=== PATIENT | male | born 1965 | race Two or more races ===

== ENCOUNTER 2016-09-13 12:53 | Emergency (ER) | payer MEDICAID, OTHER ==
[~2016-09-13] VITALS: Wt 80.0 kg
[~2016-09-13 12:53] MED LIST: NAPROSYN
[2016-09-13] MEDS ORDERED: FLUT16SP17 NASAL (14:35)
[2016-09-13] MEDS ORDERED: AZIT250T94 PO (14:35)
[2016-09-13] MEDS ORDERED: ALBU18HF INHALATION (14:35)
[2016-09-13] MEDS ORDERED: INHA-3 MC (14:40)
--- NOTE | 2016-09-13 14:52 | ERD ---
ER Documentation Chief Complaint Date/Time DATE: 09/13/16 TIME: 14:48 Chief Complaint cough and fever for the past few days. ran out of albuterol . mild distress HPI Patient is a 50-year-old male with asthma who presents to the ED with cough, fever and sore throat x 2 days. States that he has had tactile fevers at home 2 days ago no fevers yesterday or today. Denies chest pain, shortness of breath or difficulty breathing. Denies leg pain or swelling, recent surgeries or recent travel. Patient ran out of his albuterol and fluticasone. He states that he gets these symptoms usually in the winter months and it usually relieved by albuterol and fluticasone, however since he ran out he is unable to be using his medication. Denies abdominal pain, nausea, vomiting or diarrhea. Denies headache or dizziness. No other complaints. ROS All systems reviewed and are negative except as per history of present illness. Medications Home Meds Active Scripts Inhaler, Assist Devices (Compact Space Chamber) 1 Each Spacer, 1 EACH MC, #1 Prov:JULIA RAINES PA-C 09/13/16 Azithromycin* (Zithromax*) 250 Mg Tablet, 250 MG PO .ZPACK DIRECTED, #6 TAB TAKE 500 MG (2 TABS) THE FIRST DAY THEN 250 MG (1 TAB) DAYS 2-5 Prov:JULIA RAINES PA-C 09/13/16 Fluticasone Propionate* (Fluticasone Propionate* Nasal) 50 Mcg/[place] - 16 Gm [place].susp, 1 SPRAY NASAL BID, #1 BOTTLE TO EACH NOSTRIL Prov:JULIA RAINES PA-C 09/13/16 Albuterol Sulfate* (Ventolin HFA*) 18 Gm Hfa.aer.ad, 2 PUFF INHALATION Q4H, #1 INHALER Prov:JULIA RAINES PA-C 09/13/16 Reported Medications [Naprosyn] No Conflict Check 09/03/10 Allergies Allergies: Coded Allergies: No Known Allergies (Verified Allergy, Mild, 08/17/11) PMhx/Soc History of Surgery: No Anesthesia Reaction: No Hx Neurological Disorder: No Hx Respiratory Disorders: No Hx Cardiac Disorders: No Hx Psychiatric Problems: No Hx Miscellaneous Medical Probl: Yes (asthma) Hx Alcohol Use: No Hx Substance Use: No Hx Tobacco Use: No FmHx Family History: No coronary disease, No diabetes, No other Physical Exam Vitals Vital Signs Date Time Temp Pulse Resp B/P Pulse Ox O2 Delivery O2 Flow Rate FiO2 09/13/16 13:06 98.8 71 22 118/68 97 Physical Exam GENERAL: Well-developed, well-nourished male. Appears in no acute distress. HEAD: Normocephalic, atraumatic. EYES: Pupils are equally reactive bilaterally. EOMs grossly intact. No conjunctival erythema. ENT: Moist mucous membranes. No uvula deviation. No kissing tonsils. No exudates. NECK: Supple. No lymphadenopathy or thyromegaly. No meningismus. negative kernig. negative brudinski. LUNG: Clear to auscultation bilaterally. No rhonchi, rales or coarse breath sounds, mild wheezing in the upper lung villarreal. HEART: Regular rate and rhythm. No murmurs, rubs or gallops. Extremities: Equal pulses bilaterally. No peripheral clubbing, cyanosis or edema. No unilateral leg swelling. SKIN: Normal color. Warm and dry. No rashes or lesions. Capillary refill < 2 seconds Procedures/MDM ER COURSE: I kept the patient and/or family informed of laboratory and diagnostic imaging results throughout the emergency room course. MEDICAL DECISION MAKING: This is a 50-year-old male who presents with fever, cough, runny nose and wheezing. Vital signs were reviewed. Patient is afebrile. Patient is not hypoxic. Patient is not toxic or ill-appearing. Patient is eating chips in the waiting room and does not show signs of respiratory distress. Patient is speaking in full sentences. Temperature 98.8, pulse 71, O2 sat 97. Patient likely has asthma and URI. I do not think a chest x-ray is warranted at this time or a breathing treatment as patient does not show signs of respiratory distress, is afebrile and has very mild wheezing on examination. Patient does not have contractions or nasal flaring and is speaking in full sentences. Low suspicion for pneumonia, PE, pneumothorax, ACS, epiglottitis, obstruction, TB, pertussis, meningitis, sepsis. Low suspicion for peritonsillar abscess, strep pharyngitis, mononucleosis, dental abscess. I have low suspicion for PE. PERC Criteria Assessment: Age > 50: No HR > 100: No 02 < 95%: No H/o DVT/PE: No Recent trauma/surgery: No Hemoptysis: No Exogenous Estrogen: No Unilateral Leg swelling: No Pretest probability > 15%: No [Less than 2% risk of PE. No further work up is necessary] DISCHARGE: At this time, patient is stable for discharge and outpatient management with no new complaints during the ER course. Patient was sent home with albuterol, fluticasone, Zithromax and an inhaler chamber spacer. Patient will be discharged home with instructions to recheck for new or worsening symptoms such as fever, nausea, weakness, LOC and to follow up with primary care in the next 1 -2 days. Patient was advised to return to the ER for any new or worsening symptoms. Plan was discussed and patient and/or family understands and agrees. Home instructions were given. Departure Diagnosis: Primary Impression: URI (upper respiratory infection) URI type: unspecified URI Qualified Code: J06.9 - Upper respiratory tract infection, unspecified type Condition: Stable Patient Instructions: Preventing Common Respiratory Infections Additional Instructions: Llame al doctor MAANA y rafael fidencio LEVI PARA DENTRO DE 1-2 CAMPBELL.Dgale a la secretaria que nosotros le instruimos hacer esta levi.Avise o llame si cedeno condicin se empeora antes de la levi. Regresa aqui si peor o no mejor. JULIA RAINES PA-C Sep 13, 2016 14:52
== END 2016-09-13 14:25 | disposition home or self-care (01) ==
LOC: E/R 12:53
DX: J06.9 Acute upper respiratory infection, unspecified (principal); J45.909 Unspecified asthma, uncomplicated
CPT/HCPCS: 99282

== ENCOUNTER 2019-03-08 09:19 | Emergency (ER) | payer BC, MEDICAID ==
[~2019-03-08] VITALS: Ht 162.6 cm; Wt 67.9 kg
[~2019-03-08 09:19] MED LIST changes: +ALBU18HF INHALATION; +AZIT250T PO; +FLUT16SP17 NASAL; +INHA-3 MC
[2019-03-08 09:29] VITALS: BP 151/86; PULSE 78; RESP 15; Ht 162.6 cm; Wt 67.9 kg
[2019-03-08] MEDS ORDERED: KETOROLAC 30 MG INJ IM STA (10:08)
[2019-03-08] MEDS ORDERED: IBUP-1542 PO (10:11)
[2019-03-08] MEDS ORDERED: PRED20TA PO (10:11)
[2019-03-08] MEDS ORDERED: HYDR-4011 PO (10:11)
--- NOTE | 2019-03-08 10:16 | ERD ---
ER Documentation Chief Complaint Chief Complaint LEFT BUTTOCK PAIN THAT RUNS DOWN LEFT LEG HPI 53-year-old man with no reported past medical surgical history presents with complaint of left buttock pain with radiation to left leg over the past 4 days. [place] any recent trauma or fall, history of back pain or injury. Works as a manager construction. States symptoms began after he got home from work about 4 days ago. Describes pain as a sharp pain that is intermittent to the left buttock with radiation down the left lower extremity. He denies lower extremity weakness or numbness, denies urinary or bowel incontinence, saddle anesthesia. At time examination patient did take multiple steps in examination room with minimal discomfort. Has tried ibuprofen for his pain with minimal improvement in symptoms. Chiropractor on . ROS All systems reviewed and are negative except as per history of present illness. Medications Home Meds Active Scripts Prednisone* (Prednisone*) 20 Mg Tab, 40 MG PO DAILY for 4 Days, TAB Prov:ROSALIE VASQUEZ-Preeti 03/08/19 Ibuprofen* (Motrin*) 600 Mg Tab, 600 MG PO Q6, #30 TAB Prov:ROSALIE VASQUEZ PA-C 03/08/19 Hydrocodone/Acetaminophen (Lorain 5-325 Tablet) 1 Each Tablet, 1 TAB PO Q6H PRN for PAIN, #7 TAB Prov:ROSALIE VASQUEZ PA-C 03/08/19 Inhaler, Assist Devices (Compact Space Chamber) 1 Each Spacer, 1 EACH MC, #1 Prov:JULIA RAINES PA-C 09/13/16 Azithromycin* (Zithromax*) 250 Mg Tablet, 250 MG PO .ZPACK DIRECTED, #6 TAB TAKE 500 MG (2 TABS) THE FIRST DAY THEN 250 MG (1 TAB) DAYS 2-5 Prov:JULIA RAINES PA-C 09/13/16 Fluticasone Propionate* (Fluticasone Propionate* Nasal) 50 Mcg/[place] - 16 Gm [place].susp, 1 SPRAY NASAL BID, #1 BOTTLE TO EACH NOSTRIL Prov:JULIA RAINES PA-C 09/13/16 Albuterol Sulfate* (Ventolin HFA*) 18 Gm Hfa.aer.ad, 2 PUFF INHALATION Q4H, #1 INHALER Prov:JULIA RAINES PA-C 09/13/16 Reported Medications [Naprosyn] No Conflict Check 09/03/10 Allergies Allergies: Coded Allergies: No Known Allergies (Verified Allergy, Mild, 08/17/11) PMhx/Soc History of Surgery: No Anesthesia Reaction: No Hx Neurological Disorder: No Hx Respiratory Disorders: No Hx Cardiac Disorders: No Hx Psychiatric Problems: No Hx Miscellaneous Medical Probl: Yes (asthma) Hx Alcohol Use: No Hx Substance Use: No Hx Tobacco Use: No FmHx Family History: No diabetes, No coronary disease, No other Physical Exam Vitals Vital Signs Date Temp Pulse Resp B/P (MAP) Pulse Ox O2 O2 Flow FiO2 Time Delivery Rate 03/08/19 97.3 78 15 151/86 96 09:29 (107) Physical Exam I have reviewed the triage vital signs. Const: Well nourished, well developed, appears stated age Eyes: PERRL, no conjunctival injection HENT: NCAT, Neck supple without meningismus CV: RRR, Warm, well-perfused extremities RESP: CTAB, Unlabored respiratory effort GI: soft, non-tender, non-distended, no masses MSK: No gross deformities appreciated, no midline tenderness, full range of motion to back, negative straight leg test, 5 out of 5 strength throughout bilateral lower extremities, SI LT throughout Skin: Warm, dry. No rashes Neuro: grossly non focal Psych: Appropriate mood and affect. Results 24 hrs Current Medications Medications Dose Sig/Parris Start Time Status Last (Trade) Ordered Route PRN Stop Time Admin Dose Reason Admin 10 mg ONCE ONCE 03/08/19 Dexamethasone IM 10:30 (Decadron) 03/08/19 10:31 Ketorolac 30 mg ONCE STAT 03/08/19 DC Tromethamine IM 10:08 (Toradol) 03/08/19 10:09 Procedures/MDM 53-year-old male who presents with buttock pain radiating to the left lower extremity. Symptoms likely secondary to piriformis syndrome with irritation of sciatic nerve. Low suspicion for acute cord compression or cauda equina at this time, given presentation and symptoms, including epidural abscess or hematoma. Patient has no history of malignancy, active or distant history. Patient has no unexplained weight loss. No recent fevers, rigors, malaise, or recent infection. No history of IVDU or skin-popping. Patient does not have any history concerning for saddle anesthesia/perianal sensory loss or complaining of decreased rectal tone. Patient does not have urinary retention or inability to control urine from overflow. Patient has no tenderness overlying spinous process. Patient has no focal weakness on examination. ED course: Decadron, Toradol, will discharge with NSAIDs and short course of steroids Given exam and history, low suspicion for cord compression, cauda equina, epidural abscess/hematoma. Distally neurovascularly intact. Query likely musculoskeletal component. Discussed pain control,and follow up with PMD. Cautious return precautions discussed w/ full understanding DISPOSITION PLAN: We discussed follow up with the patient's primary care doctor within 24 to 48 hours. Patient counseled regarding my diagnostic impression and care plan. Prior to discharge all questions answered. Pt agrees with treatment plan and understands strict return precautions. Precautionary instructions provided including instructions to return to the ER if not improving or for any worsening or changing symptoms or concerns. Disclaimer: Inadvertent spelling and grammatical errors are likely due to EHR/dictation software use and do not reflect on the overall quality of patient care. Also, please note that the electronic time recorded on this note does not necessarily reflect the actual time of the patient encounter. Departure Diagnosis: Primary Impression: Pain of left leg Condition: Stable Patient Instructions: Back Pain W/ Sciatica Referrals: PATRICIA LARES MD (PCP) Additional Instructions: Call your primary care doctor TOMORROW for an appointment during the next 2-3 days.See the doctor sooner or return here if your condition worsens before your appointment time. ROSALIE VASQUEZ PA-C Mar 08, 2019 10:16
[2019-03-08] MEDS ORDERED: DEXAMETHASONE 10 MG/ML 1 ML INJ IM ONE (10:30)
== END 2019-03-08 10:49 | disposition home or self-care (01) ==
LOC: FTE 09:19
DX: M79.605 Pain in left leg (principal); J45.909 Unspecified asthma, uncomplicated
CPT/HCPCS: J1100; J1885; 96372